=== PATIENT | female | born 1965 | race Caucasian/White ===

== ENCOUNTER → 2016-07-27 | Outpatient (CLI) | payer MEDICAID ==
[~2016-07-27] MED LIST: APAP/HYDROCODON1 TA9 PO; AUGMENTIN 875-1 EACH PO; FLEXERIL10 MG PO; GABAPENTIN300 MG PO; LORTAB 5/500 501 TAB PO; METOPROLOL25 MG PO; NAPROXEN SODIU500 MG PO; PRAVASTATIN40 MG PO; PREDNISONE 20MG20 MG PO; PREMARIN 0.60.625 MG PO; RANITIDINE150 M1 PO; VICODIN 7.5/501 EACH PO; XANAX 0.5MG TA0.5 MG PO
[2016-07-27 14:17] LABS: AMPHETAMINES/METAMPHETAMINES NEGATIVE ng/mL (<1000)
== END ==
LOC: LAB 13:35
PROVIDERS: Nurse Practitioner Family
DX: Z79.899 Other long term (current) drug therapy (principal)

== ENCOUNTER → 2016-12-02 | Outpatient (CLI) | payer MEDICAID ==
[~2016-12-02] MED LIST changes: +BACTROBAN2% TP; +CIPRO 500MG TA500 MG PO; +DICLOFENAC 50MG50 MG PO; +KEFLEX 500MG.500 MG PO; +ROBAXIN 500 MG500 MG PO
[2016-12-05 10:58] LABS: STOOL OCCULT BLOOD NEGATIVE (NEG)
== END ==
LOC: LAB 09:40
PROVIDERS: Nurse Practitioner Family
DX: Z12.11 Encounter for screening for malignant neoplasm of colon (principal)
CPT/HCPCS: G0328

== ENCOUNTER → 2016-12-03 | Outpatient (CLI) | payer MEDICAID ==
[2016-12-05 10:59] LABS: STOOL OCCULT BLOOD NEGATIVE (NEG)
== END ==
LOC: LAB 09:43
PROVIDERS: Nurse Practitioner Family
DX: Z12.11 Encounter for screening for malignant neoplasm of colon (principal)
CPT/HCPCS: G0328

== ENCOUNTER → 2017-03-01 | Outpatient (CLI) | payer MEDICAID ==
[2017-03-01 16:12] LABS: AMPHETAMINES/METAMPHETAMINES NEGATIVE ng/mL (<1000)
== END ==
LOC: LAB 13:30
PROVIDERS: Nurse Practitioner Family
DX: Z79.899 Other long term (current) drug therapy (principal)